=== PATIENT | female | born 1995 | race Two or more races ===

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

== ENCOUNTER → 2018-10-14 | Outpatient (CLI) | payer BC ==
[2018-10-14 09:47] LABS: Urine WBC None Seen /hpf (0 - 5)
[2018-10-14 10:01] LABS: Basophils # (auto) 0 uL; Eosinophils # (auto) 0.1 uL; Nucleated Red Blood Cells % 0.1 %; Red Blood Cells 5.07 10^6/uL (4.0-5.20)
[2018-10-14 10:02] LABS: Urine Bacteria FEW /hpf (None Seen); Urine Blood Negative /uL (Negative); Urine Mucus FEW (None Seen); Urine Specific Gravity 1.023 (1.001-1.035)
[2018-10-14 10:03] LABS: Basophils % (auto) 0.6 % (0.0-2.0); Eosinophils % (auto) 1.6 % (0.0-7.0); Hematocrit 39.8 % (36.0-46.0); Hemoglobin 12.4 g/dL (12.2-16.2); Lymphocytes # (auto) 1.6 uL; Lymphocytes % (auto) 26.9 % (10.0-50.0); Mean Corpuscular Hemoglobin 24.5 pg (28.0-32.0); Mean Corpuscular Hgb Conc. 31.2 g/dL (32.0-36.0); Mean Corpuscular Volume 78.5 fL (80.0-100.0); Monocytes # (auto) 0.5 uL; Neutrophils # (auto) 3.7 uL; Neutrophils % (auto) 62.9 % (37.0-80.0); Platelet Count (auto) 318 10^3/uL (140-450); Red Cell Distribution Width 16.6 % (11.8-14.3); White Blood Cell 5.9 10^3/uL (4.4-10.8)
[2018-10-14 10:18] LABS: Albumin 3.9 g/dL (3.4-5.0); Anion Gap 4 (5-15); Blood Urea Nitrogen 12 mg/dL (7-18); Calcium 8.7 mg/dL (8.5-10.1); Carbon Dioxide 27 mmol/L (21-32); Chloride 107 mmol/L (98-107); Glucose 99 mg/dL (74-106); Potassium 4.1 mmol/L (3.5-5.1); Sodium 138 mmol/L (136-145)
[2018-10-14 10:23] LABS: Alanine Aminotransferase 35 U/L (13-56); Alkaline Phosphatase 95 U/L (45-117); Aspartate Aminotransferase 20 U/L (15-37); BUN/Creatinine Ratio 14.8; Bilirubin, Total 0.3 mg/dL (0.2-1.0); Cholesterol 184 mg/dL (< 200); GFR African American > 60 mL/min; GFR Non-African American > 60 mL/min; HDL Cholesterol 45 mg/dL (40-59); LDL Cholesterol 122 mg/dL (< 100); Total Protein 7.9 g/dL (6.4-8.2); Triglycerides 137 mg/dL (< 150)
[2018-10-14 10:27] LABS: Free T4 (Free Thyroxine) 0.91 ng/dL (0.89-1.76)
[2018-10-14 10:28] LABS: Free T3 2.81 pg/mL (2.3-4.2)
[2018-10-14 10:29] LABS: Folate (Folic Acid) > 24.00 ng/mL (5.38-24)
== END | disposition home or self-care (01) ==
LOC: LAB 09:33
PROVIDERS: ATTEND Nurse Practitioner
DX: E78.5 Hyperlipidemia, unspecified (principal)
CPT/HCPCS: 36415; 80053; 80061; 81001; 82306; 82607; 82746; 83036; 84439; 84443; 84481; 85025

== ENCOUNTER → 2018-12-27 | Outpatient (CLI) | payer BC ==
[2018-12-27 10:46] LABS: Basophils # (auto) 0 uL; Eosinophils # (auto) 0.1 uL; Hemoglobin 11.6 g/dL (12.2-16.2); Lymphocytes # (auto) 1.5 uL; Mean Corpuscular Hemoglobin 24.7 pg (28.0-32.0); Monocytes # (auto) 0.4 uL; Nucleated Red Blood Cells % 0.1 %
[2018-12-27 10:47] LABS: Basophils % (auto) 0.7 % (0.0-2.0); Eosinophils % (auto) 0.9 % (0.0-7.0); Hematocrit 36.3 % (36.0-46.0); Lymphocytes % (auto) 22.9 % (10.0-50.0); Mean Corpuscular Hgb Conc. 32.1 g/dL (32.0-36.0); Monocytes % (auto) 5.9 % (0.0-12.0); Neutrophils # (auto) 4.7 uL; Neutrophils % (auto) 69.6 % (37.0-80.0); Platelet Count (auto) 330 10^3/uL (140-450); Red Blood Cells 4.72 10^6/uL (4.0-5.20); Red Cell Distribution Width 16.8 % (11.8-14.3); White Blood Cell 6.8 10^3/uL (4.4-10.8)
[2018-12-27 11:09] LABS: Albumin 3.8 g/dL (3.4-5.0); Calcium 8.8 mg/dL (8.5-10.1); Potassium 4.2 mmol/L (3.5-5.1)
[2018-12-27 11:14] LABS: BUN/Creatinine Ratio 10.8; Bilirubin, Total 0.3 mg/dL (0.2-1.0); Total Protein 7.7 g/dL (6.4-8.2)
[2018-12-27 11:30] LABS: Urine Bacteria FEW /hpf (None Seen); Urine Blood Negative /uL (Negative); Urine Specific Gravity 1.013 (1.001-1.035); Urine WBC 2 /hpf (0 - 5)
== END | disposition home or self-care (01) ==
LOC: LAB 09:43
PROVIDERS: ATTEND Nurse Practitioner
DX: E78.5 Hyperlipidemia, unspecified (principal)
CPT/HCPCS: 36415; 80053; 80061; 81001; 82306; 83036; 84443; 85025

== ENCOUNTER → 2019-10-12 | Outpatient (CLI) | payer BC ==
[2019-10-12 11:17] LABS: Urine Bacteria FEW /hpf (None Seen); Urine Blood 2+ /uL (Negative); Urine Specific Gravity 1.016 (1.001-1.035); Urine WBC <1 /hpf (0 - 5)
[2019-10-12 11:21] LABS: Basophils # (auto) 0 uL; Eosinophils # (auto) 0.1 uL; Hematocrit 39.7 % (36.0-46.0); Lymphocytes # (auto) 1.6 uL; Neutrophils # (auto) 4.3 uL; White Blood Cell 6.4 10^3/uL (4.4-10.8)
[2019-10-12 11:23] LABS: Basophils % (auto) 0.4 % (0.0-2.0); Eosinophils % (auto) 1.6 % (0.0-7.0); Hemoglobin 12.8 g/dL (12.2-16.2); Lymphocytes % (auto) 24.9 % (10.0-50.0); Mean Corpuscular Hemoglobin 25.4 pg (28.0-32.0); Mean Corpuscular Hgb Conc. 32.3 g/dL (32.0-36.0); Mean Corpuscular Volume 78.6 fL (80.0-100.0); Monocytes # (auto) 0.4 uL; Monocytes % (auto) 5.7 % (0.0-12.0); Neutrophils % (auto) 67.4 % (37.0-80.0); Nucleated Red Blood Cells % 0.1 %; Platelet Count (auto) 330 10^3/uL (140-450); Red Blood Cells 5.05 10^6/uL (4.0-5.20); Red Cell Distribution Width 16.6 % (11.8-14.3)
[2019-10-12 11:32] LABS: Albumin 3.8 g/dL (3.4-5.0); Calcium 9.2 mg/dL (8.5-10.1); Potassium 4.2 mmol/L (3.5-5.1)
[2019-10-12 11:36] LABS: Bilirubin, Total 0.2 mg/dL (0.2-1.0); Total Protein 8.1 g/dL (6.4-8.2)
== END | disposition home or self-care (01) ==
LOC: LAB 10:11
PROVIDERS: ATTEND Nurse Practitioner
DX: E78.5 Hyperlipidemia, unspecified (principal)
CPT/HCPCS: 36415; 80053; 80061; 81001; 84443; 85025

== ENCOUNTER 2024-02-02 17:08 | Emergency (ER) | payer BC, OTHER ==
[~2024-02-02] VITALS: Ht 175.3 cm; Wt 86.4 kg
[2024-02-02] MEDS: SODIUM CHLORIDE 0.9% 1,000 ML IV ONE (19:01)
[2024-02-02 20:19] LABS: Basophils # (auto) 0 10 ^3/uL (0-0.2); Basophils % (auto) 0.2 % (0.0-2.0); Eosinophils # (auto) 0 10 ^3/uL (0-0.8); Eosinophils % (auto) 0.4 % (0.0-7.0); Hematocrit 34.6 % (36.0-46.0); Hemoglobin 11.4 g/dL (12.2-16.2); Lymphocytes # (auto) 1.2 10 ^3/uL (0.4-5.4); Lymphocytes % (auto) 12.9 % (10.0-50.0); Mean Corpuscular Hemoglobin 27.2 pg (28.0-32.0); Mean Corpuscular Hgb Conc. 32.9 g/dL (32.0-36.0); Mean Corpuscular Volume 82.8 fL (80.0-100.0); Monocytes # (auto) 0.5 10 ^3/uL (0-1.3); Monocytes % (auto) 4.7 % (0.0-12.0); Neutrophils # (auto) 7.9 10 ^3/uL (1.6-8.6); Neutrophils % (auto) 81.8 % (37.0-80.0); Red Blood Cells 4.17 10^6/uL (4.0-5.20); Red Cell Distribution Width 15.3 % (11.8-14.3); White Blood Cell 9.6 10^3/uL (4.4-10.8)
[2024-02-02 20:31] LABS: Chloride 110 mmol/L (98-107); Potassium 3.7 mmol/L (3.5-5.1); Sodium 139 mmol/L (136-145)
[2024-02-02 20:32] LABS: Anion Gap 7 (5-15); Carbon Dioxide 22 mmol/L (20-30)
[2024-02-02 20:33] LABS: Calcium 8.8 mg/dL (8.5-10.1)
[2024-02-02 20:37] LABS: Glucose 86 mg/dL (74-106)
[2024-02-02 20:42] LABS: BUN/Creatinine Ratio 9.3 (10.0-20.0); Blood Urea Nitrogen < 5 mg/dL (9-23)
[2024-02-02 20:49] VITALS: BP 116/62; PULSE 78; RESP 18; O2SAT 100
== END 2024-02-02 20:52 | disposition home or self-care (01) ==
LOC: ER 17:08 → EDUNIT# 17:08 → EDBD 17:08 → ER 20:52
DX: O26.892 Other specified pregnancy related conditions, second trimester (principal); R55 Syncope and collapse; F41.9 Anxiety disorder, unspecified; Z3A.19 19 weeks gestation of pregnancy
CPT/HCPCS: 36415; 76805; 80048; 85025; 93005; 96360; 99284; J7030

== ENCOUNTER 2024-06-23 08:20 | Observation (INO) | payer MEDICAID, OTHER ==
[2024-06-23] MEDS: LACTATED RINGER'S 2,000 ML IV ONE (10:47)
[2024-06-23] MEDS ORDERED: PREN-96 PO (11:40)
== END 2024-06-23 11:57 | disposition home or self-care (01) ==
LOC: LDRP 08:20 → UNDOADMOB 08:20 → LDRP 08:25 → UNDODISOB 11:57
PROVIDERS: ADMIT Obstetrics & Gynecology; ATTEND Obstetrics & Gynecology
DX: O48.0 Post-term pregnancy (principal); O62.9 Abnormality of forces of labor, unspecified; Z3A.40 40 weeks gestation of pregnancy
CPT/HCPCS: 59025; 76818; 81002; 94760; 96360; G0378

== ENCOUNTER 2024-06-25 08:02 | Observation (INO) | payer MEDICAID ==
[~2024-06-25 08:02] MED LIST: PREN-96 PO
== END 2024-06-25 10:23 | disposition home or self-care (01) ==
LOC: LDRP 08:02
PROVIDERS: ADMIT Obstetrics & Gynecology; ATTEND Obstetrics & Gynecology
DX: O48.0 Post-term pregnancy (principal); Z3A.40 40 weeks gestation of pregnancy
CPT/HCPCS: 59025; 76818; 81002; G0378

== ENCOUNTER 2024-06-26 02:26 | Inpatient (IN) | payer MEDICAID ==
[~2024-06-26] VITALS: Ht 175.3 cm; Wt 108.9 kg
[2024-06-26] MEDS ORDERED: BUTORPHANOL TARTRATE 2 MG/1 ML VIAL IV PRN ×2 (20:00)
[2024-06-26] MEDS ORDERED: LIDOCAINE 2%HCL (LOCAL ANESTH.) INJ 20ML MDV IJ PRN (20:00)
[2024-06-26 20:34] LABS: Basophils # (auto) 0 10 ^3/uL (0-0.2); Basophils % (auto) 0.2 % (0.0-2.0); Eosinophils # (auto) 0 10 ^3/uL (0-0.8); Eosinophils % (auto) 0.4 % (0.0-7.0); Hematocrit 31.4 % (36.0-46.0); Lymphocytes # (auto) 1.6 10 ^3/uL (0.4-5.4); Mean Corpuscular Hemoglobin 23.7 pg (28.0-32.0); Mean Corpuscular Hgb Conc. 31.8 g/dL (32.0-36.0); Mean Corpuscular Volume 74.5 fL (80.0-100.0); Monocytes # (auto) 0.5 10 ^3/uL (0-1.3); Monocytes % (auto) 5.9 % (0.0-12.0); Neutrophils # (auto) 6.7 10 ^3/uL (1.6-8.6); Neutrophils % (auto) 75.5 % (37.0-80.0); Nucleated Red Blood Cells % 0.1 %; Platelet Count (auto) 243 10^3/uL (140-450); Red Blood Cells 4.21 10^6/uL (4.0-5.20); Red Cell Distribution Width 17.4 % (11.8-14.3); White Blood Cell 8.8 10^3/uL (4.4-10.8)
[2024-06-26 20:44] LABS: Urine Amorphous Crystal FEW /hpf (None Seen); Urine Bacteria FEW /hpf (None Seen); Urine Blood TRACE /uL (Negative); Urine Clarity Turbid (Clear); Urine Color Light-Yellow (Yellow); Urine Mucus FEW (None Seen); Urine Protein, UAD TRACE (Negative); Urine Specific Gravity 1.019 (1.001-1.035); Urine Urobilinogen Normal (Negative); Urine WBC 28 /hpf (0 - 5)
[2024-06-26 20:48] LABS: INR 0.91 (0.9-1.15); Partial Thromboplastin Time 24.2 SEC (24.5-34.5); Prothrombin Time 9.7 sec (9.3-11.8)
[2024-06-26 21:04] LABS: Amphetamine Screen, Urine Neg (NEGATIVE)
[2024-06-26 21:05] LABS: Barbiturate Scree,Urine Neg (NEGATIVE); Benzodiazephine Screen, Urine Neg (NEGATIVE); Cannabinoid Screen, Urine Neg (NEGATIVE); Cocaine Screen, Urine Neg (NEGATIVE); Opiate Scree,Urine Neg (NEGATIVE); Phencyclidine Screen, Urine Neg (NEGATIVE)
[2024-06-26 21:06] LABS: Alanine Aminotransferase 12 U/L (7-40); Alkaline Phosphatase 242 U/L (46-116); Anion Gap 9 (5-15); Aspartate Aminotransferase 17 U/L (13-40); BUN/Creatinine Ratio 10.6 (10.0-20.0); Blood Urea Nitrogen 7 mg/dL (9-23); Calcium 9.5 mg/dL (8.7-10.4); Carbon Dioxide 21 mmol/L (20-31); Chloride 108 mmol/L (98-107); Glucose 72 mg/dL (74-106); Potassium 3.7 mmol/L (3.5-5.1); Sodium 138 mmol/L (136-145)
[2024-06-26 21:07] LABS: Bilirubin, Total 0.3 mg/dL (0.2-1.0); Total Protein 6.7 g/dL (5.7-8.2)
[2024-06-27] MEDS ORDERED: ONDANSETRON HCL 4 MG/2 ML VIAL IV PRN ×2 (00:15→15:30)
[2024-06-27] MEDS ORDERED: miSOPROStol 50 MCG per PRE-CUT 1/2 TAB PO PRN (00:15)
[2024-06-27] MEDS: LACTATED RINGER'S 1,000 ML IV SCH (01:19)
[2024-06-27] MEDS ORDERED: ePHEDrine SULFATE 50 MG/ML AMP IV ONE (03:15)
[2024-06-27] MEDS: WITCH HAZEL-GLYCERIN PAD TOP PRN (03:22)
[2024-06-27] MEDS: PHISODERM TOP SOLN 240ML BTL TOP PRN (03:22)
[2024-06-27] MEDS: DERMOPLAST 60ML BOTTLE TOP PRN (03:22)
[2024-06-27] MEDS: LACTATED RINGER'S 1,000 ML IV ONE (03:45)
[2024-06-27] MEDS: ROPIVACAINE HCL 200 ML ONE (04:39)
[2024-06-27] MEDS: LACT. RINGERS/OXYTOCIN 20UNITS 1,000 ML IV SCH (10:23)
[2024-06-27] MEDS: ACETAMINOPHEN 325 MG TAB PO PRN (10:24)
[2024-06-27] MEDS: LACT. RINGERS/OXYTOCIN 20UNITS 500 ML IV ONE ×2 (13:14→13:17)
[2024-06-27] MEDS: ceFAZolin 2 GM/D5W50ml 50 ML IV ONE (13:27)
[2024-06-27] MEDS ORDERED: ACETAMINOPHEN 325 MG TAB PO PRN (13:45)
[2024-06-27] MEDS ORDERED: ONDANSETRON ODT 4 MG TAB PO PRN (13:45)
[2024-06-27] MEDS ORDERED: LIDOCAINE HCL 2 %PF INJ 10ML AMP IJ ONE (13:47)
[2024-06-27] MEDS ORDERED: fentaNYL CITRATE 100 MCG/2 ML VL ONE (13:50)
[2024-06-27] MEDS ORDERED: MIDAZOLAM HCL 2MG/2ML 2ml VIAL (1mg/ml) ONE (13:51)
[2024-06-27] MEDS ORDERED: SODIUM BICARB 8.4% 50Meq/50ml SYR Vial IV ONE (13:57)
[2024-06-27] MEDS ORDERED: PROPOFOL 10 MG/ML 20 ML IV ONE (14:00)
[2024-06-27] MEDS ORDERED: MORPHINE SULF PF 5 MG/10 ML VIAL ONE (14:44)
[2024-06-27 15:08] VITALS: PULSE 92; RESP 17; O2SAT 95
[2024-06-27] MEDS ORDERED: hydrALAZINE HCL 20 MG/ML VL IV PRN (15:30)
[2024-06-27] MEDS ORDERED: HYDROmorphone HCL 2 MG/ML VL/or syr IV PRN (15:30)
[2024-06-27] MEDS ORDERED: ePHEDrine SULFATE 50 MG/ML AMP IV PRN (15:30)
[2024-06-27] MEDS: NALBUPHINE HCL 10 MG/1ml INJECTION SUBCUT ONE (15:30)
[2024-06-27] MEDS ORDERED: MIDAZOLAM HCL 2MG/2ML 2ml VIAL (1mg/ml) IV PRN (15:30)
[2024-06-27] MEDS ORDERED: HYDROcodone-ACET 5/325MG TAB PO PRN ×2 (16:30)
[2024-06-27 18:21] LABS: Basophils # (auto) 0 10 ^3/uL (0-0.2); Eosinophils # (auto) 0 10 ^3/uL (0-0.8); Lymphocytes # (auto) 0.9 10 ^3/uL (0.4-5.4); Mean Corpuscular Volume 74.5 fL (80.0-100.0); Neutrophils # (auto) 16.4 10 ^3/uL (1.6-8.6)
[2024-06-27 18:23] LABS: Hematocrit 23.8 % (36.0-46.0); Hemoglobin 7.4 g/dL (12.2-16.2); Lymphocytes % (auto) 4.8 % (10.0-50.0); Mean Corpuscular Hemoglobin 23.1 pg (28.0-32.0); Monocytes # (auto) 1.1 10 ^3/uL (0-1.3); Monocytes % (auto) 6.1 % (0.0-12.0); Neutrophils % (auto) 89.1 % (37.0-80.0); Nucleated Red Blood Cells % 0.1 %; Platelet Count (auto) 232 10^3/uL (140-450); Red Blood Cells 3.19 10^6/uL (4.0-5.20); Red Cell Distribution Width 17.9 % (11.8-14.3); White Blood Cell 18.5 10^3/uL (4.4-10.8)
[2024-06-27 19:00] VITALS: BP 125/74; PULSE 104; RESP 16; TEMP 99.4; O2SAT 97
[2024-06-27] MEDS: IBUPROFEN 800 MG TAB PO SCH (19:55)
[2024-06-27] MEDS: DOCUSATE SOD 100 MG CAP PO SCH (22:08)
[2024-06-27 23:00] VITALS: BP 116/66; PULSE 87; RESP 16; TEMP 98.2; O2SAT 97
[2024-06-28] VITALS (12 sets, daily range): BP systolic 115–134; BP diastolic 61–73; PULSE 85–108; RESP 16–18; TEMP 98.3–99.3; O2SAT 97–100
[2024-06-28 04:17] LABS: Basophils # (auto) 0 10 ^3/uL (0-0.2); Eosinophils # (auto) 0 10 ^3/uL (0-0.8); Eosinophils % (auto) 0.1 % (0.0-7.0); Lymphocytes # (auto) 1.5 10 ^3/uL (0.4-5.4)
[2024-06-28 04:19] LABS: Basophils % (auto) 0.2 % (0.0-2.0); Lymphocytes % (auto) 13.8 % (10.0-50.0); Mean Corpuscular Hgb Conc. 32.4 g/dL (32.0-36.0); Mean Corpuscular Volume 77.3 fL (80.0-100.0); Monocytes # (auto) 0.8 10 ^3/uL (0-1.3); Neutrophils # (auto) 8.6 10 ^3/uL (1.6-8.6); Neutrophils % (auto) 78.9 % (37.0-80.0); Platelet Count (auto) 153 10^3/uL (140-450); Red Blood Cells 2.07 10^6/uL (4.0-5.20); Red Cell Distribution Width 17.4 % (11.8-14.3); White Blood Cell 10.8 10^3/uL (4.4-10.8)
[2024-06-28 04:31] LABS: Hemoglobin 5.2 g/dL (12.2-16.2)
[2024-06-28 08:06] LABS: RPR Non Reactive (Non Reactive)
[2024-06-28] MEDS: cefTRIAXone 1GM/50ML D5W 50 ML IV ONE (11:22)
[2024-06-28 19:37] LABS: Basophils # (auto) 0 10 ^3/uL (0-0.2); Basophils % (auto) 0.2 % (0.0-2.0); Eosinophils # (auto) 0 10 ^3/uL (0-0.8); Eosinophils % (auto) 0.2 % (0.0-7.0); Mean Corpuscular Volume 78.4 fL (80.0-100.0); Monocytes # (auto) 0.7 10 ^3/uL (0-1.3); White Blood Cell 13.8 10^3/uL (4.4-10.8)
[2024-06-28 19:39] LABS: Hematocrit 23.9 % (36.0-46.0); Hemoglobin 7.9 g/dL (12.2-16.2); Lymphocytes # (auto) 1.7 10 ^3/uL (0.4-5.4); Lymphocytes % (auto) 12.5 % (10.0-50.0); Mean Corpuscular Hemoglobin 25.9 pg (28.0-32.0); Mean Corpuscular Hgb Conc. 33.1 g/dL (32.0-36.0); Monocytes % (auto) 5.1 % (0.0-12.0); Neutrophils # (auto) 11.3 10 ^3/uL (1.6-8.6); Platelet Count (auto) 182 10^3/uL (140-450); Red Blood Cells 3.05 10^6/uL (4.0-5.20); Red Cell Distribution Width 18.9 % (11.8-14.3)
[2024-06-29] VITALS (7 sets, daily range): BP systolic 125–144; BP diastolic 71–83; PULSE 97–115; RESP 16–18; TEMP 98.4–101.1; O2SAT 96–100
[2024-06-29] MEDS ORDERED: IBUP-1455 PO (03:03)
[2024-06-29] MEDS ORDERED: FER325T PO (03:03)
[2024-06-29] MEDS ORDERED: DOCU-265 PO (03:03)
[2024-06-29] MEDS ORDERED: ceFAZolin 2 GM/D5W50ml 50 ML IV ONE (09:30)
[2024-06-29 10:03] LABS: Basophils # (auto) 0 10 ^3/uL (0-0.2); Basophils % (auto) 0.2 % (0.0-2.0); Eosinophils # (auto) 0 10 ^3/uL (0-0.8); Eosinophils % (auto) 0.2 % (0.0-7.0); Hemoglobin 7.9 g/dL (12.2-16.2); Lymphocytes # (auto) 1.1 10 ^3/uL (0.4-5.4); Monocytes # (auto) 0.7 10 ^3/uL (0-1.3); Neutrophils # (auto) 12.1 10 ^3/uL (1.6-8.6)
[2024-06-29 10:05] LABS: Hematocrit 24.1 % (36.0-46.0); Lymphocytes % (auto) 8.2 % (10.0-50.0); Mean Corpuscular Hemoglobin 25.4 pg (28.0-32.0); Mean Corpuscular Hgb Conc. 32.7 g/dL (32.0-36.0); Mean Corpuscular Volume 77.6 fL (80.0-100.0); Monocytes % (auto) 5.1 % (0.0-12.0); Neutrophils % (auto) 86.3 % (37.0-80.0); Platelet Count (auto) 219 10^3/uL (140-450); Red Cell Distribution Width 19.1 % (11.8-14.3)
[2024-06-29] MEDS: PIPERACILLIN-TAZOB 3.375GM 100 ML IV SCH (10:47)
[2024-06-29] MEDS ORDERED: ceFAZolin 1GM/50ML 50 ML IV SCH (17:30)
[2024-06-30 03:00] VITALS: BP 136/84; PULSE 104; RESP 18; TEMP 98.2; O2SAT 99
[2024-06-30 04:30] LABS: Basophils # (auto) 0 10 ^3/uL (0-0.2); Basophils % (auto) 0.4 % (0.0-2.0); Eosinophils # (auto) 0.1 10 ^3/uL (0-0.8); Eosinophils % (auto) 1.1 % (0.0-7.0); Hemoglobin 7.6 g/dL (12.2-16.2); Lymphocytes # (auto) 1.6 10 ^3/uL (0.4-5.4); Mean Corpuscular Hemoglobin 26.1 pg (28.0-32.0)
[2024-06-30 04:33] LABS: Hematocrit 22.8 % (36.0-46.0); Lymphocytes % (auto) 14.3 % (10.0-50.0); Mean Corpuscular Hgb Conc. 33.2 g/dL (32.0-36.0); Mean Corpuscular Volume 78.5 fL (80.0-100.0); Monocytes # (auto) 0.5 10 ^3/uL (0-1.3); Monocytes % (auto) 4.6 % (0.0-12.0); Neutrophils # (auto) 8.8 10 ^3/uL (1.6-8.6); Neutrophils % (auto) 79.6 % (37.0-80.0); Platelet Count (auto) 210 10^3/uL (140-450); Red Blood Cells 2.91 10^6/uL (4.0-5.20); Red Cell Distribution Width 19.1 % (11.8-14.3)
[2024-06-30 04:50] LABS: Alanine Aminotransferase 14 U/L (7-40); Alkaline Phosphatase 128 U/L (46-116); Anion Gap 6 (5-15); Aspartate Aminotransferase 21 U/L (13-40); BUN/Creatinine Ratio 9.7 (10.0-20.0); Blood Urea Nitrogen 6 mg/dL (9-23); Calcium 8.6 mg/dL (8.7-10.4); Carbon Dioxide 24 mmol/L (20-31); Chloride 110 mmol/L (98-107); Glucose 88 mg/dL (74-106); Potassium 3.8 mmol/L (3.5-5.1); Sodium 140 mmol/L (136-145)
[2024-06-30 04:51] LABS: Albumin 3.3 g/dL (3.2-4.8); Bilirubin, Total 0.3 mg/dL (0.2-1.0); Total Protein 5.3 g/dL (5.7-8.2)
[2024-06-30 07:00] VITALS: BP 130/67; PULSE 98; RESP 16; TEMP 98.4; O2SAT 98
[2024-06-30 11:00] VITALS: BP 128/74; PULSE 80; RESP 16; TEMP 98.7; O2SAT 99
[2024-06-30 15:00] VITALS: BP 132/69; PULSE 89; RESP 18; TEMP 98.5; O2SAT 100
[2024-06-30 19:00] VITALS: BP 135/82; PULSE 105; RESP 16; TEMP 99; O2SAT 100
[2024-06-30] MEDS: CEPHALEXIN 250 MG CAP PO SCH (21:54)
[2024-06-30 23:00] VITALS: BP 133/71; PULSE 102; RESP 17; TEMP 98.6; O2SAT 100
[2024-07-01 03:15] VITALS: BP 116/68; PULSE 78; RESP 16; TEMP 98.1; O2SAT 95
[2024-07-01 06:30] VITALS: BP 136/78; PULSE 77; RESP 16; TEMP 98.3; O2SAT 100
[2024-07-01 09:50] VITALS: BP 136/78; PULSE 77; RESP 16; TEMP 98.3; O2SAT 100
== END 2024-07-01 09:50 | disposition home or self-care (01) | DRG 542 ==
LOC: LDRP 19:03 → OBSVTOIN 19:03 → LDRP 19:42
PROVIDERS: ADMIT Obstetrics & Gynecology; ATTEND Nurse Practitioner Family
PROC: 0DQR0ZZ Repair Anal Sphincter, Open Approach (ICD-10-PCS; 2024-06-27)
PROC: 3E0DXGC Introduction of Other Therapeutic Substance into Mouth and Pharynx, External Approach (ICD-10-PCS; 2024-06-27)
PROC: 0UQG0ZZ Repair Vagina, Open Approach (ICD-10-PCS; 2024-06-27)
PROC: 3E0R3BZ Introduction of Anesthetic Agent into Spinal Canal, Percutaneous Approach (ICD-10-PCS; 2024-06-27)
PROC: 00HU33Z Insertion of Infusion Device into Spinal Canal, Percutaneous Approach (ICD-10-PCS; 2024-06-27)
PROC: 10D07Z6 Extraction of Products of Conception, Vacuum, Via Natural or Artificial Opening (ICD-10-PCS; principal; 2024-06-27 13:57)
PROC: 30233N1 Transfusion of Nonautologous Red Blood Cells into Peripheral Vein, Percutaneous Approach (ICD-10-PCS; 2024-06-28)
DX: O70.20 Third degree perineal laceration during delivery, unspecified (principal); Z37.0 Single live birth; A41.9 Sepsis, unspecified organism; O75.3 Other infection during labor; O23.43 Unspecified infection of urinary tract in pregnancy, third trimester; R71.0 Precipitous drop in hematocrit; O99.02 Anemia complicating childbirth; Z3A.40 40 weeks gestation of pregnancy; N39.0 Urinary tract infection, site not specified
CPT/HCPCS: 36415; 36430; 59025; 59409; 62282; 76818; 80053; 80307; 81001; 81002; 85025; 85610; 85730; 86592; 86803; 86850; 86900; 86901; 86920; 87040; 94760; 94762; 96360; 96361; 96365; 96366; G0378; J2250; J2543; J2590; J2704; J7060

== ENCOUNTER 2025-07-03 10:21 | Emergency (ER) | payer MEDICAID ==
[~2025-07-03] VITALS: Ht 175.3 cm; Wt 105.8 kg
[~2025-07-03 10:21] MED LIST changes: +DOCU-265 PO; +FER325T PO; +IBUP-1455 PO
--- NOTE | 2025-07-03 10:31 | ED.PDOC ---
History of Present Illness HPI Comments This is a 29 year old female presenting to the ED with chief complaint of post exposure to rat droppings. Patient reports that her work has had a rat problem recently and she has been exposed to breathing in rat droppings and smelling an awful urine smell while on break. Patient relays that a health inspector firearms came by her work yesterday and advised her to get checked regarding her exposure. Patient states she is currently experiencing chest tightness with an associated mild cough. Patient denies any SOB, dizziness, fever, chills, or N/V. Chief Complaint: Post Exposure Time Seen by MD: 10:25 Primary Care Provider: UNKNOWN Allergies: Coded Allergies: NO KNOWN ALLERGIES (Unverified , 10/22/12) Home Meds Active Scripts Ferrous Sulfate (FERROUS SULFATE) 325 Mg Tb, 1 TAB PO DAILY, #30 TAB 3 Refills Prov:MARIANGEL MURILLO [facility] 06/29/24 Ibuprofen Micronized (Ibuprofen) 800 Mg Tab, 800 MG PO Q8HPRN PRN for 30 Days, #90 TAB Prov:MARIANGEL MURILLO [facility] 06/29/24 Docusate Sodium (Docusate Sodium) 100 Mg Cap, 200 MG PO HS PRN for 30 Days, #60 CAP 3 Refills Prov:MARIANGEL MURILLO [facility] 06/29/24 Reported Medications Vit W/ Ferrous Fumara ( One Daily) Daily Tab, 1 TAB PO DAILY, #90 TAB 3 Refills 06/23/24 Information Source: Patient Mode of Arrival: Ambulatory Severity: Moderate Timing: Days Duration: Since onset Prehospital treatment: None Past Medical History PAST MEDICAL HISTORY: Anxiety Surgical History: Denies all surgeries REFERRAL NURSE History: No Pertinent REFERRAL NURSE History Family History Family History: Reviewed,noncontributory to illness, Family hx of HTN Social History Smoker: Non-Smoker Alcohol: Denies ETOH Use Drugs: Denies Drug Use Lives In: Home Constitutional: denies: chills, diaphoresis, fatigue, fever, malaise, sweats, weakness, others EENTM: denies: blurred vision, double vision, ear bleeding, ear discharge, ear drainage, ear pain, ear ringing, eye pain, eye redness, hearing loss, mouth pain, mouth swelling, nasal discharge, nose bleeding, nose congestion, nose pain, photophobia, tearing, throat pain, throat swelling, voice changes, others Respiratory: reports: cough; denies: hemoptysis, orthopnea, SOB at rest, shortness of breath, SOB with excertion, stridor, wheezing, others Cardiovascular: reports: chest pain; denies: dizzy spells, diaphoresis, Dyspnea on exertion, edema, irregular heart beat, left arm pain, lightheadedness, palpitations, PND, syncope, others Gastrointestinal: denies: abdomen distended, abdominal pain, blood streaked bowels, constipated, diarrhea, dysphagia, difficulty swallowing, hematemesis, melena, nausea, poor appetite, poor fluid intake, rectal bleeding, rectal pain, vomiting, others Genitourinary: denies: abnormal vagina bleeding, burning, dyspareunia, dysuria, flank pain, frequency, hematuria, incontinence, pain, , vagina discharge, urgency, others Neurological: denies: dizziness, fainting, headache, left sided numbness, left sided weakness, numbness, paresthesia, pre-existing deficit, right sided numbness, right sided weakness, seizure, speech problems, tingling, tremors, weakness, others Musculoskeletal: denies: back pain, gout, joint pain, joint swelling, muscle pain, muscle stiffness, neck pain, others Integumetry: denies: bruises, change in color, change in hair/nails, dryness, laceration, lesions, lumps, rash, wounds, others Allergic/Immunocompromised: denies: Difficulty Healing, Frequent Infections, Hives, Itching, others Hematologic/Lymphatic: denies: anemia, blood clots, easy bleeding, easy bruising, swollen glands, others Endocrine: denies: excessive hunger, excessive sweating, excessive thirst, excessive urination, flushing, intolerance to cold, intolerance to heat, unexplained weight gain, unexplained weight loss, others Psychiatric: denies: anxiety, bipolar disorder, depression, hopeless, panic disorder, schizophrenia, sleepless, suicidal, others All Other Systems: Reviewed and Negative Physical Exam General Appearance: No Apparent Distress, Normal HEENT: Normal ENT Inspection, Pharynx Normal, TMs Normal Neck: Full Range of Motion, Non-Tender, Normal, Normal Inspection Respiratory: Chest Non-Tender, Lungs Clear, No Accessory Muscle Use, No Respiratory Distress, Normal Breath Sounds Cardiovascular: No Edema, No JVD, No Murmur, No Gallop, Normal Peripheral Pulses, Regular Rate/Rhythm Breast Exam: Deferred Gastrointestinal: No Organomegaly, Non Tender, No Pulsatile Mass, Normal Bowel Sounds, Soft Genitalia: Deferred Pelvic: Deferred Rectal: Deferred Extremities: No calf tenderness, Normal capillary refill, Normal inspection, Normal range of motion, Non-tender, No pedal edema Musculoskeletal : Apperance: Normal Neurologic: Alert, travel pt II-XII nml as Tested, No Motor Deficits, Normal Affect, Normal Mood, No Sensory Deficits Cerebellar Function: Normal Reflexes: Normal Skin: Dry, Normal Color, Warm Lymphatic: No Adenopathy Was a procedure done? Was a procedure done?: No Differential Dx Considerations may include: anxiety, hanta virus, environmental allergy, viral syndrome X-Ray, Labs, Meds, VS Vital Signs Date Time Temp Pulse Resp B/P (MAP) Pulse Ox O2 Delivery O2 Flow Rate FiO2 07/03/25 10:32 77 07/03/25 10:22 98.5 94 18 163/85 97 98.5 Lab Test 07/03/25 10:45 Range/Units Urine Test Negative Negative [place] [address] Ph: [phone] DIAGNOSTIC IMAGING Diagnostic Imaging Report : [id number] Signed PATIENT: LENO KAMARAACCT: [id number] UNIT: [id number] : 1995 LOC: ER ROOM / BED: / AGE / SEX: 29 / F ADM STATUS: REG ER SERVICE 1029 ORDERING PHYSICIAN: SERENA MARTINEZ MD PROCEDURE(s): CXR1 - CHEST XRAY 1 VIEW REASON: cough, cp ORDER NUMBER(s): [id number], ACCESSION NUMBER(s): [id number] CHEST RADIOGRAPH Indication: cough, cp Technique: Single frontal view of the chest was obtained COMPARISON: None FINDINGS: Lines and Tubes: None Lungs: Clear Pleura: No effusion. No pneumothorax. Cardiomediastinal contours: Unremarkable Bones: Unremarkable IMPRESSION: No acute disease. ATED BY: NII HOLLINGSWORTH MD DICTATED DATE/TIME: 07/03/25 1155 SIGNED BY: NII HOLLINGSWORTH MD SIGNED DATE/TIME: 07/03/25 1152 CC: Images Reviewed?: Images reviewed and evaluated by me Time of 1ST Reevaluation: 11:31 Reevaluation 1ST: Unchanged Patient Education/Counseling: Diagnosis, Treatment, Prognosis, Need For Follow Up Family Education/Counseling: No Family Present Comments pt reports that there were rat droppings at work. she has no respiratory symptoms. No viral symptoms. However she states that the health inspector firearms wanted her to be checked. We have had no hot the virus outbreak and patient has no symptoms to suggest that. Her chest x-ray is unremarkable her EKGs unremarkable. Patient is stable for discharge Additional Information Reviewed patient's previous visit(s): 02/02/24 for syncope The following tests were ordered, and results were reviewed by me: Preg urine, EKG Additional information was gathered from interviewing the following independent historian: None I reviewed and agreed with the following test results read by other provider: Chest XR I discussed treatments and results with medical personnel and: PATIENT Comprehensive systems review obtained and negative except for what is stated in the HPI. SEPSIS Sepsis Screen Date sepsis recognized/suspect: Jul 03, 2025 Time Sepsis recognized/suspect: 1022 Recent Procedure: No On Antibiotic Therapy: No Respiratory Rate >20: No Heart Rate >90: No Temp<36 C (96.8 F) or >38.3 C: No SBP <90 or MAP <65 mmHG: No New Acute Mental Status Change: No Is the patient on CPAP, BIPAP,: No Physician Orders Chest Xray 1 View (07/03/25 10:29) Electrocardigram (07/03/25 10:29) Electrocardigram (07/03/25 11:29) Vital Signs Date Time Temp Pulse Resp B/P (MAP) Pulse Ox O2 Delivery O2 Flow Rate FiO2 07/03/25 10:32 77 07/03/25 10:22 98.5 94 18 163/85 97 98.5 Departure 1 Departure Time of Disposition: 12:21 Impression: Primary Impression: Feared condition not demonstrated Disposition: 01 HOME / SELF CARE / HOMELESS Condition: Good Discharged With: Self Critical Care Note Critical Care Time?: No Stability Stability form required: No Heart Score Heart Score: Heart Score Response (Comments) Value History N/A 0 EKG N/A 0 Age N/A 0 Risk Factors N/A 0 Troponin N/A 0 Total 0 I personally scribed for SERENA MARTINEZ MD ([email or web address]) on 07/03/25 at 10:31. Electronically submitted by Amanuel Slaughter ([email or web address]). I personally scribed for SERENA MARTINEZ MD ([email or web address]) on 07/03/25 at 10:44. Electronically submitted by Amanuel Slaughter ([email or web address]). I personally scribed for SERENA MARTINEZ MD ([email or web address]) on 07/03/25 at 12:00. Electronically submitted by Amanuel Slaughter ([email or web address]). SERENA MARTINEZ MD Jul 03, 2025 10:31
--- NOTE | 2025-07-03 11:58 | DVH ---
CHEST RADIOGRAPH Indication: cough, cp Technique: Single frontal view of the chest was obtained COMPARISON: None FINDINGS: Lines and Tubes: None Lungs: Clear Pleura: No effusion. No pneumothorax. Cardiomediastinal contours: Unremarkable Bones: Unremarkable IMPRESSION: No acute disease.
[2025-07-03 12:28] VITALS: BP 114/76; PULSE 77; RESP 14; TEMP 98.1; O2SAT 98
--- NOTE | 2025-07-04 12:10 | ECG ---
[facility] Test Date: 2025-07-03 Test Time: 10:32:41 Pat Name: LENO KAMARA Department: Room: Gender: F Electrician Maintenance: GP : 1995 Requested By: SERENA MARTINEZ Order Number: [id number] Reading MD: Measurements Intervals [place] Rate: 77 P: 78 CO: 145 QRS: 71 QRSD: 82 T: 33 QT: 362 QTc: 410 Interpretive Statements Sinus rhythm Please click the below link to view image of tracing.
== END 2025-07-03 12:32 | disposition home or self-care (01) ==
LOC: ER 10:21
DX: Z71.1 Person with feared health complaint in whom no diagnosis is made (principal); Z79.899 Other long term (current) drug therapy
CPT/HCPCS: 71045; 81025; 93005